=== PATIENT | female | born 1940 | race Caucasian/White ===

== ENCOUNTER → 2022-08-21 | Outpatient (CLI) | payer OTHER ==
[2022-08-21 17:00] LABS: BASOPHIL # 0.1 10^3/uL (0.0-0.1); BASOPHIL % 0.7 % (0.0-0.2); EOSINOPHIL # 0.2 10^3/uL (0.0-0.2); EOSINOPHIL % 2.8 % (0.0-5.0); LYMPHOCYTES # 1.11 10^3/uL1 (1.0-4.8); LYMPHOCYTES % 16.4 % (24.0-44.0); MEAN CORP HGB 29.4 pg (26-34); MONOCYTES # 0.6 10^3/uL (0.3-0.8); MONOCYTES % 8.1 % (5.0-12.0); NEUTROPHIL # 4.8 10^3/uL (1.8-7.7); NEUTROPHILS % 71.6 % (41.0-85.0); PLATELET COUNT 273 10^3/uL (150-400); RED CELL DISTRIBUTION WIDTH 13.1 % (11.5-14.5)
[2022-08-21 17:41] LABS: CARBON DIOXIDE 30.7 mmol/L (20.0-32)
== END | disposition home or self-care (01) ==
LOC: NPLAB 16:04
PROVIDERS: ATTEND Nurse Practitioner Acute Care
DX: I10 Essential (primary) hypertension (principal); E56.9 Vitamin deficiency, unspecified; F28 Other psychotic disorder not due to a substance or known physiological condition; F41.9 Anxiety disorder, unspecified; R51.9 Headache, unspecified
CPT/HCPCS: 36415; 80053; 80076; 82306; 84443; 85025

== ENCOUNTER → 2022-09-02 | Outpatient (CLI) | payer OTHER ==
[2022-09-02 15:35] LABS: BASOPHIL # 0.1 10^3/uL (0.0-0.1); BASOPHIL % 1.1 % (0.0-0.2); EOSINOPHIL # 0.2 10^3/uL (0.0-0.2); EOSINOPHIL % 3.8 % (0.0-5.0); LYMPHOCYTES # 1.06 10^3/uL1 (1.0-4.8); LYMPHOCYTES % 22.5 % (24.0-44.0); MONOCYTES # 0.5 10^3/uL (0.3-0.8); NEUTROPHILS % 62.6 % (41.0-85.0); PLATELET COUNT 225 10^3/uL (150-400); RED CELL DISTRIBUTION WIDTH 13.9 % (11.5-14.5)
[2022-09-02 15:50] LABS: CARBON DIOXIDE 30.7 mmol/L (20.0-32)
== END | disposition home or self-care (01) ==
LOC: NPLAB 14:36
PROVIDERS: ATTEND Family Medicine
DX: I10 Essential (primary) hypertension (principal)
CPT/HCPCS: 36415; 80053; 83880; 85025

== ENCOUNTER → 2022-10-07 | Outpatient (CLI) | payer OTHER | END | disposition home or self-care (01) | LOC: NPLAB 16:43 | PROVIDERS: ATTEND Family Medicine | DX: I10 Essential (primary) hypertension (principal); G30.9 Alzheimer's disease, unspecified; E56.9 Vitamin deficiency, unspecified | CPT/HCPCS: 36415; 80061; 83036 ==

== ENCOUNTER → 2022-11-11 | Outpatient (CLI) | payer OTHER ==
[2022-11-11 17:49] LABS: BASOPHIL % 0.6 % (0.0-0.2); EOSINOPHIL # 0.1 10^3/uL (0.0-0.2); EOSINOPHIL % 1.4 % (0.0-5.0); HEMATOCRIT(ML) 36.6 % (36.0-46.0); HEMOGLOBIN 11.8 g/dL (12.0-15.0); LYMPHOCYTES # 0.91 10^3/uL1 (1.0-4.8); LYMPHOCYTES % 17.9 % (24.0-44.0); MEAN CORP HGB CONCENTRATION 32.2 g/dL (33-36.5); MEAN CORP VOLUME 93.1 fL (78-100); MONOCYTES # 0.4 10^3/uL (0.3-0.8); MONOCYTES % 8.3 % (5.0-12.0); NEUTROPHIL # 3.6 10^3/uL (1.8-7.7); NEUTROPHILS % 71.8 % (41.0-85.0); PLATELET COUNT 217 10^3/uL (150-400); RED BLOOD CELL 3.93 10^6/uL (4.00-5.20); WHITE BLOOD CELL 5.1 10^3/uL (4.5-11.0)
[2022-11-11 17:57] LABS: +ADD MANUAL DIFF(NO CHRG) NO
[2022-11-11 18:12] LABS: ALBUMIN(ML) 3.1 g/dL (3.4-5.0); ALBUMIN/GLOBULIN RATIO 1.033; ANION GAP 12.1; CALCIUM 8.5 mg/dL (8.4-10.5); CARBON DIOXIDE 28.1 mmol/L (20.0-32); CREATININE SERUM 0.79 mg/dL (0.59-1.40); POTASSIUM 4.2 mmol/L (3.6-5.2)
== END | disposition home or self-care (01) ==
LOC: NPLAB 17:24
PROVIDERS: ATTEND Nurse Practitioner Acute Care
DX: I10 Essential (primary) hypertension (principal); E46 Unspecified protein-calorie malnutrition
CPT/HCPCS: 36415; 80053; 82607; 82746; 83735; 85025

== ENCOUNTER → 2022-12-28 | Outpatient (CLI) | payer MEDICARE ==
[2022-12-28 17:25] LABS: ANION GAP 9.9; BUN/CREATININE RATIO 27.02 (10.0-20.0); CARBON DIOXIDE 29.6 mmol/L (20.0-32); CREATININE SERUM 0.74 mg/dL (0.59-1.40); EST GFR, NON-AA 75.5 (>/=60); POTASSIUM 4.5 mmol/L (3.6-5.2)
[2022-12-28 17:26] LABS: BASOPHIL % 0.9 % (0.0-0.2); EOSINOPHIL # 0.1 10^3/uL (0.0-0.2); EOSINOPHIL % 2.8 % (0.0-5.0); HEMATOCRIT(ML) 33.1 % (36.0-46.0); HEMOGLOBIN 10.6 g/dL (12.0-15.0); LYMPHOCYTES # 0.81 10^3/uL1 (1.0-4.8); LYMPHOCYTES % 17.4 % (24.0-44.0); MEAN CORP HGB 30.5 pg (26-34); MEAN CORP VOLUME 95.1 fL (78-100); MONOCYTES # 0.5 10^3/uL (0.3-0.8); MONOCYTES % 10.7 % (5.0-12.0); NEUTROPHIL # 3.2 10^3/uL (1.8-7.7); NEUTROPHILS % 68.2 % (41.0-85.0); RED BLOOD CELL 3.48 10^6/uL (4.00-5.20); RED CELL DISTRIBUTION WIDTH 14.2 % (11.5-14.5); WHITE BLOOD CELL 4.7 10^3/uL (4.5-11.0)
[2022-12-28 17:31] LABS: CALCIUM 8.6 mg/dL (8.4-10.5)
[2022-12-28 17:34] LABS: PROTHROMBIN PROTIME 10.5 SEC (9.7-11.6)
== END | disposition home or self-care (01) ==
LOC: NPLAB 15:42
PROVIDERS: ATTEND Family Medicine
DX: L03.90 Cellulitis, unspecified (principal); Z79.01 Long term (current) use of anticoagulants
CPT/HCPCS: 36415; 80048; 85025; 85610; 85730

== ENCOUNTER → 2023-01-07 | Outpatient (CLI) | payer MEDICARE | END | disposition home or self-care (01) | LOC: RAD 07:57 | PROVIDERS: ATTEND Nurse Practitioner Acute Care | DX: C41.9 Malignant neoplasm of bone and articular cartilage, unspecified (principal) | CPT/HCPCS: 78315; A9503 ==

== ENCOUNTER → 2023-02-22 | Outpatient (CLI) | payer MEDICARE ==
[2023-02-22 16:30] LABS: BASOPHIL % 0.4 % (0.0-0.2); EOSINOPHIL # 0.2 10^3/uL (0.0-0.2); EOSINOPHIL % 3.1 % (0.0-5.0); HEMATOCRIT(ML) 53.4 % (36.0-46.0); HEMOGLOBIN 16.8 g/dL (12.0-15.0); LYMPHOCYTES # 0.92 10^3/uL1 (1.0-4.8); LYMPHOCYTES % 17.9 % (24.0-44.0); MEAN CORP HGB 29.7 pg (26-34); MEAN CORP HGB CONCENTRATION 31.5 g/dL (33-36.5); MEAN CORP VOLUME 94.3 fL (78-100); MONOCYTES # 0.4 10^3/uL (0.3-0.8); MONOCYTES % 8.4 % (5.0-12.0); NEUTROPHIL # 3.6 10^3/uL (1.8-7.7); NEUTROPHILS % 69.8 % (41.0-85.0); PLATELET COUNT 195 10^3/uL (150-400); RED BLOOD CELL 5.66 10^6/uL (4.00-5.20); WHITE BLOOD CELL 5.1 10^3/uL (4.5-11.0)
[2023-02-22 16:35] LABS: +ADD MANUAL DIFF(NO CHRG) NO
[2023-02-22 16:42] LABS: ALBUMIN/GLOBULIN RATIO 0.714; ANION GAP 14.9; BUN/CREATININE RATIO 21.91 (10.0-20.0); CREATININE SERUM 0.73 mg/dL (0.59-1.40); EST GFR, NON-AA 76.7 (>/=60); POTASSIUM 3.9 mmol/L (3.6-5.2)
== END | disposition home or self-care (01) ==
LOC: NPLAB 15:31
PROVIDERS: ATTEND Nurse Practitioner Acute Care
DX: I10 Essential (primary) hypertension (principal); D64.9 Anemia, unspecified
CPT/HCPCS: 36415; 80053; 85025

== ENCOUNTER → 2023-03-05 | Outpatient (CLI) | payer MEDICARE ==
[2023-03-05 17:07] LABS: LDL/HDL RATIO 1.9
== END | disposition home or self-care (01) ==
LOC: LAB 16:06
PROVIDERS: ATTEND Nurse Practitioner Acute Care
DX: I10 Essential (primary) hypertension (principal); D64.9 Anemia, unspecified; Z79.899 Other long term (current) drug therapy
CPT/HCPCS: 36415; 80061; 82306; 83036; 84443

== ENCOUNTER → 2023-08-18 | Outpatient (CLI) | payer MEDICARE ==
[2023-08-18 14:21] LABS: BASOPHIL % 0.5 % (0.0-0.2); EOSINOPHIL # 0.3 10^3/uL (0.0-0.2); EOSINOPHIL % 3.3 % (0.0-5.0); HEMATOCRIT(ML) 31.4 % (36.0-46.0); HEMOGLOBIN 9.6 g/dL (12.0-15.0); LYMPHOCYTES # 1.33 10^3/uL1 (1.0-4.8); LYMPHOCYTES % 16.5 % (24.0-44.0); MEAN CORP HGB CONCENTRATION 30.6 g/dL (33-36.5); MEAN CORP VOLUME 94.9 fL (78-100); MONOCYTES # 0.7 10^3/uL (0.3-0.8); MONOCYTES % 8.2 % (5.0-12.0); NEUTROPHIL # 5.7 10^3/uL (1.8-7.7); NEUTROPHILS % 71.1 % (41.0-85.0); PLATELET COUNT 287 10^3/uL (150-400); RED BLOOD CELL 3.31 10^6/uL (4.00-5.20); RED CELL DISTRIBUTION WIDTH 14.2 % (11.5-14.5); WHITE BLOOD CELL 8.1 10^3/uL (4.5-11.0)
[2023-08-18 14:23] LABS: +ADD MANUAL DIFF(NO CHRG) NO
[2023-08-18 14:36] LABS: ALBUMIN(ML) 2.6 g/dL (3.4-5.0); ALBUMIN/GLOBULIN RATIO 0.764; ANION GAP 9.9; BUN/CREATININE RATIO 46.26 (10.0-20.0); CALCIUM 8.8 mg/dL (8.4-10.5); CARBON DIOXIDE 28.8 mmol/L (20.0-32); CREATININE SERUM 0.67 mg/dL (0.59-1.40); EST GFR, NON-AA 84.7 (>/=60); POTASSIUM 3.7 mmol/L (3.6-5.2)
== END | disposition home or self-care (01) ==
LOC: NPLAB 13:08
PROVIDERS: ATTEND Nurse Practitioner Acute Care
DX: I10 Essential (primary) hypertension (principal)
CPT/HCPCS: 36415; 80053; 85025